=== PATIENT | female | born 1980 | race Caucasian/White ===

== ENCOUNTER 2024-10-22 21:20 | Emergency (ER) | payer OTHER, SELFPAY ==
[2024-10-22 21:21] VITALS: BP 140/85; PULSE 91; RESP 18; TEMP 36.6; O2SAT 100
--- NOTE | 2024-10-22 21:44 | EDS_ITS ---
HPI History of Present Illness Chief Complaint: Headache Informant: patient Onset/Context/Timing Onset: Today and Hours Context: Gradual Timing: Continuous Quality -Headache: Positive for Similar Prior Headaches Location: Pain behind both eyes. Nausea and vomiting. No fever. No trauma. Current Severity: Moderate Maximum Severity: Moderate Associated Symptoms/Injury Associated Symptoms: Positive for Nausea, Vomiting and Photophobia; Negative for Fever, Sore Throat, Sinus Pressure, Numbness, Tingling, Preceding Aura, Visual Changes, Blurred Vision or Visual Loss Injury - LEWIS: Negative for Direct Trauma, Fall or Assault Narrative Narrative: 44-year-old female history of migraine headaches. No family history of intracranial bleeds or aneurysms. She has had migraine headaches before. She tried to take her Imitrex when this started earlier today around 4:30 AM and she is thrown up twice. Denies any fever. No head trauma. No sinus congestion. No neck pain. No trouble moving arms or legs. Prior similar symptoms: Yes Recent Illness/Hospitalization: No PFSH PFSH Home Medications ?Medication ?Instructions ?Recorded ?Last Taken ?Type doxycycline hyclate 100 mg capsule 200 mg (2 x 100 mg) PO ONCE #2 caps 07/28/23 Unknown Rx ondansetron 4 mg disintegrating 4 mg PO Q6H PRN nausea and 10/22/24 Unknown Rx tablet vomiting #10 tabs Allergy/AdvReac Type Severity Reaction Status Date / Time Penicillins Allergy Mild Hives Verified 10/22/24 21:21 Social History Smoking Status: Never smoker ROS ROS ED ROS Narrative Headache. Nausea vomiting. Constitutional Constitutional ED: Denies chills or fever(s) Eyes Eyes: Denies blurry vision, change in vision or diplopia ENT ENT ED: Denies ear pain Cardiovascular Cardiovascular: Denies chest pain Respiratory/Chest Respiratory/Chest: Denies cough Gastrointestinal Gastrointestinal: Reports nausea and vomiting; Denies abdominal pain, co nstipation, diarrhea or melena Genitourinary Genitourinary ED: Denies dysuria or hematuria Musculoskeletal Musculoskeletal: Denies arthralgias Integumentary Denies abscess Neurologic Neurologic: Reports headache(s); Denies paresthesias or weakness Psychiatric Psychiatric: Denies anxiety or depression Endocrine Endocrinology: Denies polydipsia, polyphagia or polyuria Hematologic/Lymphatic Hematologic/Lymphatic: Denies easy bleeding, easy bruising or lymphadenopathy Allergic/Immunologic Allergic/Immunologic ED: Denies mouth swelling, tongue swelling or urticaria EXAM Physical Exam Narrative Exam Narrative: Well-appearing 44-year-old female. Vital signs are stable afebrile. H EENT exam pupils round react light. Extra motions are intact. No facial droop. Normal speech. Moist mucous membranes. No trauma to her head or face. Nontender. No bruising. Neck nontender no meningismus. No lymphadenopathy. C an easily flex her chin to chest. Lungs clear to auscultation. Heart regular rhythm rate about 90 no murmur. Chest wall ribs nontender. Abdomen soft nontender. Patient moving all 4 extremities. 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 Dorsi plantarflexion intact. Fingertip to nose within normal limits. No drift of either upper or lower extremities. Back nontender. Skin normal. Neurologic exam normal. NIH is 0. Const Vital Signs: 10/22/24 21:21 Temperature 98 F Temperature Source Temporal Pulse Rate 91 Respiratory Rate 18 Blood Pressure 140/85 H Blood Pressure Mean 103 Pulse Ox 100 Oxygen Delivery Method Room Air Positive well nourished and well developed; Negative for cachectic, contractures or unkempt General Appearance ED: well developed and NAD; Negative for unkempt, cachectic, contractures, cyanotic, diaphoretic or pallor Nutritional Appearance: Negative for cachectic HEENT Reports normocephalic and moist mucous membranes atraumatic; Negative for trauma, tenderness, temporal artery tenderness or vesicular rash Face and Sinus: Negative for sinus tenderness Eyes PERRL and EOMs intact bilaterally General Eye ED: Negative for pale conjunctiva or scleral icterus Neck no lymphadenopathy, supple, no meningeal signs and no JVD General: Negative for tenderness Resp normal respiratory effort and clear to auscultation bilaterally Effort and Inspection: Negative for retractions Auscultation: Negative for rales, rhonchi or wheezes Cardio regular rate, regular rhythm, S1 normal heart sound, S2 normal heart sound and no murmurs Rate: Negative for bradycardia or tachycardic Rhythm: Negative for abnormal rhythm GI non-tender and non-distended Palpation: soft; Negative for firm, tender or mass Back/Spine no CVA tenderness General Back: Negative for CVA tenderness or tenderness Cervical Spine: Negative for cervical spine tenderness Thoracic Spine / Upper Back: Negative for thoracic spinal tenderness Lumbar Spine / Lower Back: Negative for lumbar spinal tenderness Extremity normal to inspection and full ROM General Extremety ED: Negative for edema or tenderness General Extremity: Negative for edema Neuro oriented x3 and CN's II-XII intact bilaterally Sensorium / Orientation: awake, alert, oriented to person, oriented to place and oriented to time; Negative for orientation impaired, lethargic or stuporous Coordination / Balance: [id number] test normal Speech: speech normal Motor Exam: strength 5/5 throughout Psych mental status grossly normal Appearance: Negative for unkempt Attitude: No agitated Mood & Affect: Negative for depressed, anxious or tearful Skin General Skin Exam: elasticity normal and turgor normal; Negative for jaundice or pallor Lesions: no lesions and No lesion noted Rashes: no rashes MDM MDM MDM Narrative Medical decision making narrative: 44-year-old female history of migraine headaches. Headache started at 430 this morning. She has had trouble holding her Imitrex down is thrown up 2 doses. Denies fever. No sinus congestion. No trauma. No family history of intracranial bleeds. No one else at home is currently having headaches. She has a normal neurologic exam. Does not need imaging. She will be treated with IV fluids, Toradol, Benadryl and Zofran and reassessed. Repeat exam at 10:25 PM patient started feel better already. Nausea is resolving. Headache is improving. Neurologic exam remains normal. Should be reassessed and discharged after a while longer. Repeat exam 10:50 PM patient doing well. Headache resolving. Nausea resolved. Neurologic exam remains normal. She is awake and alert. Patient is comfortable being discharged home. She has Imitrex prescription and she is picking up that I wrote her for Zofran. History & Record Review Discussion w/independent historian: Patient and Family Discharge Plan Triage Chief Complaint: Headache ED Provider: Donell Ma Dx/Rx/DC Orders Clinical Impression: Migraine headache, Vomiting Instructions: ED, Migraine (Classical) Prescriptions: New ondansetron 4 mg tablet,disintegrating 4 mg PO Q6H PRN (Reason: nausea and vomiting) Qty: 10 0RF No Action doxycycline hyclate 100 mg capsule 200 mg PO ONCE Qty: 2 0RF Primary Care Provider: Pritesh Anand Referrals: Pritesh Anand MD [Primary Care Provider] - 1-2 Days if not improving Activity Restrictions/Additional Instructions: Plenty of fluids and rest. Motrin and Tylenol for pain. Zofran as needed for nausea. Follow-up with your doctor if not improving or return if you are feeling worse. Print Language: Croatian Disposition Disposition: Home, Self Care
[2024-10-22] MEDS: Ondansetron 4 MG/2 ML Vial IV (21:56)
[2024-10-22] MEDS: 0.9% Normal Saline (1000mL) 1,000 ML 1000 ML IV (21:56)
[2024-10-22] MEDS: Ketorolac 30 MG/ML Syringe IV (21:56)
[2024-10-22] MEDS: DiphenhydrAMINE 50 MG/ML Syringe IV (21:57)
== END 2024-10-22 22:57 | disposition home or self-care (01) ==
LOC: ED 21:51
PROVIDERS: Emergency Provider Emergency Medicine; PCP Family Medicine; Visit Provider Emergency Medicine
DX: G43.909 Migraine, unspecified, not intractable, without status migrainosus (principal)
CPT/HCPCS: 96361; 96374; 96375; 99283; A4216; J2405